=== PATIENT | male | born 1950 | race Caucasian/White ===

== ENCOUNTER 2020-10-01 20:59 | Inpatient (IN) | payer MEDICARE ==
[~2020-10-01] VITALS: Ht 175.3 cm; Wt 119.3 kg
[2020-10-01 21:38] LABS: BASOPHILS ABSOLUTE AUTO 0.07 K/mm3 (0.00-0.23); BASOPHILS PERCENT AUTO 1 % (0-2); EOSINOPHILS ABSOLUTE AUTO 0.09 K/mm3 (0.00-0.68); EOSINOPHILS PERCENT AUTO 1 % (0-6); Hematocrit 45.3 % (37.0-53.0); Hemoglobin 14.8 g/dL (13.5-17.5); IMMATURE GRAN ABSOLUTE AUTO 0.01 K/mm3 (0.00-0.10); IMMATURE GRAN PERCENT AUTO 0 % (0-1); LYMPHOCYTES ABSOLUTE AUTO 2.58 K/mm3 (0.84-5.20); LYMPHOCYTES PERCENT AUTO 40 % (21-46); MONOCYTES ABSOLUTE AUTO 0.57 K/mm3 (0.16-1.47); MONOCYTES PERCENT AUTO 9 % (4-13); Mean Corpuscular HGB 30.5 pg (26.0-34.0); Mean Corpuscular HGB Conc 32.7 g/dL (31.5-36.5); Mean Corpuscular Volume 93 fL (80-100); Mean Platelet Volume 10.9 fL (9.1-12.4); NEUTROPHILS ABSOLUTE AUTO 3.16 K/mm3 (1.96-9.15); NEUTROPHILS PERCENT AUTO 49 % (41-73); Platelet Count 248 K/mm3 (150-400); Red Blood Cell Count 4.85 M/mm3 (4.30-5.90); White Blood Cell Count 6.48 K/mm3 (4.00-11.30)
[2020-10-01 22:00] LABS: Alanine Aminotransfer (ALT/SGP 32 U/L (12-78); Albumin, Blood 3.3 g/dL (3.4-5.0); Albumin/Globulin Ratio 0.7 (0.8-1.8); Alk Phos 79 U/L (50-136); Anion Gap 13 mmol/L (6-16); Aspartate Aminotrans (AST/SGOT 36 U/L (12-37); Bilirubin, Total 0.6 mg/dL (0.1-1.0); Blood Urea Nitrogen 25 mg/dL (8-24); Bun/Creatinine Ratio 22.3 (12.0-20.0); CO2, Blood 19 mmol/L (21-32); Calcium, Blood 9.2 mg/dL (8.5-10.1); Chloride, Blood 107 mmol/L (98-108); Creatinine, Blood 1.12 mg/dL (0.60-1.20); Globulin, Blood 4.7 g/dL (2.2-4.0); Glomerular Filtration Rate >60 (60-); Glucose, Blood 402 mg/dL (70-99); Potassium, Blood 4.4 mmol/L (3.5-5.5); Sodium, Blood 139 mmol/L (136-145); Troponin I 0.072 ng/mL (0.000-0.040)
[2020-10-02 03:21] LABS: BASOPHILS ABSOLUTE AUTO 0.05 K/mm3 (0.00-0.23); BASOPHILS PERCENT AUTO 1 % (0-2); EOSINOPHILS PERCENT AUTO 0 % (0-6); Hematocrit 44.9 % (37.0-53.0); Hemoglobin 14.9 g/dL (13.5-17.5); IMMATURE GRAN ABSOLUTE AUTO 0.01 K/mm3 (0.00-0.10); IMMATURE GRAN PERCENT AUTO 0 % (0-1); LYMPHOCYTES ABSOLUTE AUTO 2.17 K/mm3 (0.84-5.20); LYMPHOCYTES PERCENT AUTO 25 % (21-46); MONOCYTES ABSOLUTE AUTO 0.83 K/mm3 (0.16-1.47); MONOCYTES PERCENT AUTO 10 % (4-13); Mean Corpuscular HGB 31.2 pg (26.0-34.0); Mean Corpuscular HGB Conc 33.2 g/dL (31.5-36.5); Mean Corpuscular Volume 94 fL (80-100); Mean Platelet Volume 10.5 fL (9.1-12.4); NEUTROPHILS ABSOLUTE AUTO 5.48 K/mm3 (1.96-9.15); NEUTROPHILS PERCENT AUTO 64 % (41-73); Platelet Count 231 K/mm3 (150-400); RDW Coefficient Variation 13.9 % (11.7-14.2); Red Blood Cell Count 4.78 M/mm3 (4.30-5.90); White Blood Cell Count 8.54 K/mm3 (4.00-11.30)
[2020-10-02 03:54] LABS: Alanine Aminotransfer (ALT/SGP 31 U/L (12-78); Albumin, Blood 3.2 g/dL (3.4-5.0); Albumin/Globulin Ratio 0.7 (0.8-1.8); Alk Phos 76 U/L (50-136); Anion Gap 11 mmol/L (6-16); Aspartate Aminotrans (AST/SGOT 32 U/L (12-37); Bilirubin, Total 0.9 mg/dL (0.1-1.0); Blood Urea Nitrogen 27 mg/dL (8-24); Bun/Creatinine Ratio 24.1 (12.0-20.0); CHOL/HDL RATIO 3.7; CO2, Blood 20 mmol/L (21-32); Calcium, Blood 9.2 mg/dL (8.5-10.1); Chloride, Blood 107 mmol/L (98-108); Cholesterol 194 mg/dL (50-200); Creatinine, Blood 1.12 mg/dL (0.60-1.20); Globulin, Blood 4.4 g/dL (2.2-4.0); Glomerular Filtration Rate >60 (60-); Glucose, Blood 367 mg/dL (70-99); HDL Cholesterol 52 mg/dL (>39); LDL/HDL RATIO 2.5; Low Density Lipoprotein Chol 129 mg/dL (0-110); Potassium, Blood 4.6 mmol/L (3.5-5.5); Sodium, Blood 138 mmol/L (136-145); Total Protein, Blood 7.6 g/dL (6.4-8.2); Triglycerides 67 mg/dL (30-160); Very Low Density Lipoprot Chol 13 mg/dL (6-32)
[2020-10-02 04:01] LABS: Troponin I 0.653 ng/mL (0.000-0.040)
--- NOTE | 2020-10-02 04:11 | NUR ---
CRITICAL LAB LAB VOCERA'D W/ CRITICAL VALUES: TROPONIN 0.653 AND LACTIC ACID 6.1. CALL PLACED TO MD PHOENIX. MD PHOENIX WITH ORDERS TO WATCH BLOOD PRESSURE AND NOTIFY OF ANY CHANGES.
--- NOTE | 2020-10-02 04:36 | NUR ---
ADMIT NOTE PT ARRIVED TO PCU FROM ED VIA STRETCHER AT APPROX 0130. THE PT AMBULATED FROM ED STRETCHER TO PCU BED INDEPENDENTLY. PT A&OX4. SP02>92% ON NC. SOB W/ AMBULATION/EXERTION. RA BASELINE. TELEMETRY READS SR, HR 80'S. PT DENIES PAIN. PT STATES HE IS ANXIOUS, HE "NEVER GOES TO THE DR" AND STATES "THE ER DR FREAKED ME OUT" WITH NEW POSSIBLE DIAGNOSIS. PT STATES "MY LIFE CHANGES TODAY. ITS ALOT." PT EXPRESSES HE HOPES TO GO HOME TOMORROW. ORIENTED PT TO ROOM, CALL LIGHT, SPOKE ABOUT POTENTIAL PROCEDURES PLANNED IN AM. PT USED URINAL AT BEDSIDE. CALL LIGHT IN REACH.
--- NOTE | 2020-10-02 05:58 | NUR ---
SHIFT SUMMARY NO ACUTE CHANGES. PT A&OX4. SP02>92% ON NC. SOB W/ AMBULATION/EXERTION. RA BASELINE. TELEMETRY READS SR, HR 80'S. PT USED URINAL AT BEDSIDE. PT DENIES PAIN. PT STATES WILL BE COMING TO VISIT TODAY, ANXIOUS TO GO HOME. PT USED CALL LIGHT APPROPRIATELY. PT SLEPT PART OF NIGHT. STATES HE WAS RESTLESS IN BED FOR A FEW HOURS. CALL LIGHT IN REACH. WILL GIVE REPORT TO ONCOMING NURSE.
--- NOTE | 2020-10-02 12:25 | NUR ---
REASSESSMENT WHILE PT WAS HAVING HIS ECHO DONE THIS AM HE GOT DYSPENIC WHILE LAYING ON HIS SIDE AND TOOK SEVERAL MINUTES TO RECOVER. ECHO STOPPED AT THAT POINT AND THEN TECH CAME BACK AND FINISHED ABOUT [address] RODRIGUEZ ROUNDED AND WAS INFORMED BY RN THAT [employer] L[employer] FENCE INSTALLER HAD SAID PT'S EF WAS ONLY ABOUT 20%. DR. RODRIGUEZ CONSULTED DR. BRADEN. DR. BRADEN ROUNDED ON PT AND AT FIRST ORDERED MORE DIURETICS SINCE PT HAS ONLY VOIDED 100ML SINCE LASIX DOSE THIS MORNING AND BLADDER SCAN SHOWED LESS THAN 100ML. UPON DOING FURTHER ASSESSMENT PT WAS ABLE TO LAY FLAT FOR THE REST OF DR. BRADEN'S ASSESSMENT SO HE DECIDED TO PROCEED WITH HEART CATH THIS AFTERNOON AND ORDERED THE DIURETICS HE HAD JUST ORDERED TO BE HELD. HE DID STILL WANT PT TO RECEIVE NITRO OINTMENT THOUGH. PT IN AGREEMENT WITH PLAN. PT'S UPDATED BY THIS RN. PT'S LUNGS STILL HAVE SOME CRACKLES IN THE BASES, ON 3L/NC. BP STABLE. PT'S LUNCH WAS HELD. WILL CONTINUE TO MONITOR.
--- NOTE | 2020-10-02 14:30 | NUR ---
ECHOCARDIOGRAM COMPLETE
--- NOTE | 2020-10-02 16:35 | NUR ---
PT CAME BACK FROM [facility] WITH R TR BAND IN PLACE. SITE REMAINED C/D/I, SOFT, WITH NO HEMATOMA. DR. BRADEN TO THE BEDSIDE TO EXPLAIN TO PT THAT HE NEEDS TO GO TO A HOSPITAL WITH A HIGHER LEVEL OF CARE TO BE EVALUATED FOR OPEN HEART SURGERY. PT ANXIOUS ABOUT THIS, BUT AGREEABLE. THIS RN OFFERED TO CALL PT'S AND UPDATE HER, BUT PT STATED THAT DR. BRADEN HAD ALREADY TALKED TO HER. SQ LOVENOX GIVEN PER DR. BRADEN AFTER HE REQUESTED DOSE BE REDUCED, SEE ORDERS. REPORT CALLED TO AZRA RN UP AT [facility]. PT DC'D AT 1630 VIA AMBULANCE. REPORT GIVEN TO EMT FOR TRANSPORT. ALL BELONGINGS TRANSFERRED WITH PT.
== END 2020-10-02 16:35 | disposition short-term general hospital (02) | DRG 280 ==
LOC: ER 20:59 → ERHOLD 23:20 → PCU 10-02 01:40
PROVIDERS: Emergency Medicine; ADMIT Internal Medicine
PROC: 4A023N7 Measurement of Cardiac Sampling and Pressure, Left Heart, Percutaneous Approach (ICD-10-PCS; principal; 2020-10-02)
PROC: B2111ZZ Fluoroscopy of Multiple Coronary Arteries using Low Osmolar Contrast (ICD-10-PCS; 2020-10-02)
DX: I50.21 Acute systolic (congestive) heart failure (principal); I21.A1 Myocardial infarction type 2; J96.01 Acute respiratory failure with hypoxia; I42.0 Dilated cardiomyopathy; E87.2 Acidosis; I25.10 Atherosclerotic heart disease of native coronary artery without angina pectoris; E03.9 Hypothyroidism, unspecified; I44.7 Left bundle-branch block, unspecified; E11.9 Type 2 diabetes mellitus without complications; E66.01 Morbid (severe) obesity due to excess calories; Z68.36 Body mass index [BMI] 36.0-36.9, adult; Z87.442 Personal history of urinary calculi; Z98.890 Other specified postprocedural states
CPT/HCPCS: 36415; 71045; 76604; 80053; 80061; 82947; 83605; 83880; 84443; 84484; 85025; 93005; 93010; 93306; 93458; 94640; 96374; 99152; 99285-25; A9270; C1769; C1894; J1644; J1650; J1940; J2250; J3010; J7030; J7040; Q9967